=== PATIENT | male | born 1980 | race Caucasian/White ===

== ENCOUNTER 2021-02-05 07:57 | Emergency (ER) | payer MEDICAID ==
[~2021-02-05] VITALS: Ht 157.5 cm; Wt 70.3 kg
[2021-02-05] MEDS ORDERED: MAG HYDROX/AL HYDROX/SIMETH 30 ML LIQUID UDC PO ONE (08:30)
[2021-02-05] MEDS ORDERED: FAMOTIDINE 20 MG TABLET PO ONE (08:30)
--- NOTE | 2021-02-05 08:40 | NUR ---
C/O abd pain x2wks. States originally having pain only after eating but has become intermittent pain. Denies N/V/D. No previous surgeries. Saline lock placed and labs taken from lock. Medications administered per provider order. Pt aware, will await lab results.
[2021-02-05 08:41] LABS: HEMATOCRIT 40.1 % (36.7-47.1); MEAN CORPUSCULAR HEMOGLOBIN 30.1 uug (23.8-33.4); MEAN CORPUSCULAR VOLUME 86.7 fL (73.0-96.2); PLATELET COUNT (AUTO) 216 K/uL (152-348)
[2021-02-05] MEDS ORDERED: FAMOTIDINE 20 MG TABLET ONE (08:44)
[2021-02-05] MEDS ORDERED: MAG HYDROX/AL HYDROX/SIMETH 30 ML LIQUID UDC ONE (08:45)
[2021-02-05 08:48] LABS: POTASSIUM 3.6 mmol/L (3.5-5.1)
[2021-02-05 08:54] LABS: BILIRUBIN,TOTAL 0.7 mg/dL (0.2-1.0); TOTAL PROTEIN, SERUM 7.7 g/dL (6.4-8.2)
[2021-02-05] MEDS ORDERED: FAMO-132 PO (09:23)
[2021-02-05 09:39] VITALS: BP 128/81
--- NOTE | 2021-02-05 09:39 | NUR ---
D/C saline lock, clear and intact. Patient discharged to home in stable condition. Written and verbal after care instructions given. Patient verbalizes understanding of instructions. Stressed follow up or return to ER for worsening s/s.
== END 2021-02-05 09:40 | disposition home or self-care (01) ==
LOC: ER 07:57
DX: K29.70 Gastritis, unspecified, without bleeding (principal)
CPT/HCPCS: 36415; 83690; 85025; A4663